=== PATIENT | female | born 1960 | race Caucasian/White ===

== ENCOUNTER 2016-05-01 06:55 | Day surgery (SDC) | payer BC ==
[~2016-05-01] VITALS: Ht 167.6 cm; Wt 99.8 kg
[2016-05-01] VITALS (12 sets, daily range): BP systolic 95–138; BP diastolic 55–76
[~2016-05-01 06:55] MED LIST: ASPI-983 PO; ATOR80TA76 PO; CLOP75TA28 PO; LISI10TA2 PO; METO-333 PO; NITR0.4T SL
[2016-05-01] MEDS ORDERED: HEParin (CATH LAB) 2,000 ML IV ONE (07:00)
[2016-05-01] MEDS ORDERED: NS IV 1000 ML 1,000 ML ONE (07:00)
[2016-05-01] MEDS ORDERED: LIDOCAINE 1% INJ 20 ML (XYLOCAINE) VIAL ONE ×2 (07:00→08:55)
--- OUTSIDE RECORDS SUMMARY | 2016-05-01 07:00 | XMS REPORT | Continuity of Care Document ---
Author Author [facility] Organization [facility] Address Unknown Phone Unavailable Care Team Providers Care Tunnel Man Name Role Phone CATY PEPE DO PCP Insurance Providers Payer Name Policy Number Subscriber Name Relationship [facility] [id number] Tamera Topete 16 Self / Same As Patient Advance Directives Directive Response Recorded Date/Time Advance Directives No 04/12/16 3:56am Resuscitation Status Full Code 04/12/16 3:56am Chief Complaint and Reason for Visit Chief Complaint ELEVATED TROPONIN;CHEST PAIN Reason for Visit Chest pain Non-ST elevation [place] (NSTEMI) Problems Active Problems Medical Problem Onset Date Status Chest pain Unknown Acute Non-ST elevation [place] (NSTEMI) Unknown Resolved Medications Current Home Medications Medication Dose Units Route Directions Days/Qty Instructions Start Date Clopidogrel Bisulfate 75 Mg 75 Mg Oral Daily 90 Days 04/13/16 Atorvastatin Calcium 80 Mg 80 Mg Oral Bedtime 90 Days 04/13/16 Nitroglycerin 0.4 Mg 0.4 Mg Sublingual Every 5 Minutes as needed for Chest Pain 30 Days 04/13/16 Metoprolol Tartrate 25 Mg 25 Mg Oral Twice A Day 90 Days 04/13/16 Lisinopril 10 Mg 10 Mg Oral Daily 90 Days 04/13/16 Aspirin 81 Mg 81 Mg Oral Daily 90 Days 04/13/16 Social History Social History Problem Response Recorded Date/Time Alcohol Use Rarely Uses 04/12/2016 4:01am Recreational Drug Use No 04/12/2016 4:01am Recent Foreign Travel No 04/12/2016 4:00am Recent Infectious Disease Exposure No 04/12/2016 4:00am Hospitalization with Isolation Denies 04/13/2016 3:32pm Smoking Status Current Everyday Smoker 04/12/2016 5:02am Type Used Cigarettes 04/13/2016 3:32pm Recent Hopitalizations No 04/12/2016 4:01am Hospitalization with Isolation Denies 04/13/2016 3:32pm Query Response Start Date Stop Date Smoking Status Current Everyday Smoker Hospital Discharge Instructions Patient Instructions Physician Instructions Follow Up/Plan Follow up with Dr Osorio in one to two weeks CARDIAC CATH DISCHARGE INSTRUCTIONS *Hold Metformin for 48 hours post heart cath. ACTIVITY * Go Home directly and rest. * Limit activity of the leg (or wrist if it was used) for 7 days including aerobics, swimming, jogging, bicycling, etc. * Restrict stair-climbing for 7 days if possible, if not, climb up with your non-cath leg, then bring together on the same step. * Avoid lifting, pushing, pulling or excessive movement of the affected extremity for 7 days. * Customary sexual activity may be resumed after 2 days-use caution not to use a position that strains or causes pain to the affected extremity. * No driving for 24 hours. * NO SMOKING. * Avoid straining for bowel movements for 7 days. * Gentle walking on level ground is allowed. * Returning to work will depend on the type of procedure and the results. Your doctor will discuss this with you. CALL YOUR DOCTOR FOR ANY OF THE FOLLOWING: *If bleeding from the puncture site occurs- Apply gentle pressure to site with clean cloth and call your doctor or EMS. * If a knot or lump forms under the skin, increases in size, or causes pain. * If bruising appears to be worsening or moving further down your leg instead of disappearing. * Temperature above 101 F. CARE OF YOUR GROIN INCISION; * Bruising or purple discoloration of the skin near the puncture site is common. * You may shower only, no bathtub bathing for 5 days. Be careful to avoid slipping as your leg may feel stiff. * If a closure device was used on your femoral artery, please see the attached guide regarding care of the device and your leg. * REMOVE the dressing from your groin the next day after your procedure in the shower. CARE OF YOUR WRIST INCISION; * Bruising or purple discoloration of the skin near the puncture site is common. * You may shower. * DO NOT submerge wrist. * Remove dressing in 24 hours. Plan of Care Discharge Date 04/13/16 12:40pm Disposition 01 HOME, SELF-CARE Instructions/Education Provided Heart Healthy Diet Forms Provided Follow-Up Fax Prescriptions See Medication Section Care Plan and Goals See Discharge Instructions Section Functional Status Query Response Date Recorded Patient Orientation Person Place Time Situation Normal For Age April 13, 2016 3:32pm Comprehension Ability Understands Concepts April 13, 2016 9:00am Allergies, Adverse Reactions, Alerts No known allergies. Immunizations No immunization records. Vital Signs Acute Vital Signs Vital Response Date/Time Temperature (Fahrenheit) 98.2 degrees F (97.6 - 99.5) 04/13/2016 12:30pm Temperature (Calculated Celsius) 36.16371 degrees C (36.4 - 37.5) 04/13/2016 12:00pm Temperature Source Tympanic 04/13/2016 12:30pm Pulse Rate (adult) 68 bpm (60 - 90) 04/13/2016 12:30pm Respiratory Rate 16 bpm (12 - 24) 04/13/2016 12:30pm O2 Sat by Pulse Oximetry 98 % (88 - 100) 04/13/2016 12:30pm Blood Pressure 103/51 mm Hg 04/13/2016 12:30pm Blood Pressure Mean 68 mm Hg 04/13/2016 12:00pm Pain Numeric Pain Scale 0-No Pain 04/13/2016 12:30pm Height (Feet) 5 feet 04/12/2016 4:00am Height (Inches) 7.00 inches 04/12/2016 4:00am Height (Calculated Centimeters) 170.776532 cm 04/12/2016 4:00am Weight (Pounds) 219 pounds 04/13/2016 6:00am Weight (Ounces) 0.0 oz 04/13/2016 6:00am Weight (Calculated Grams) 07639.730 gm 04/13/2016 6:00am Weight (Calculated Kilograms) 99.038501 kilograms 04/13/2016 6:00am Calculated BMI 34.1 04/12/2016 4:00am Capillary Refill Capillary Refill Less Than 3 Seconds 04/12/2016 3:00pm Results Laboratory Results Test Name Result Units Flags Reference Collection Date/Time Result Date/ Time Comments White Blood Count 6.8 10^3/uL 4.3-11.0 04/13/2016 3:43am 04/13/2016 4: 32am Red Blood Count 4.40 10^6/uL 4.35-5.85 04/13/2016 3:43am 04/13/2016 4: 32am Hemoglobin 12.9 G/DL 11.5-16.0 04/13/2016 3:43am 04/13/2016 4:32am Hematocrit 40 % 35-52 04/13/2016 3:43am 04/13/2016 4:32am Mean Corpuscular Volume 91 FL 80-99 04/13/2016 3:43am 04/13/2016 4: 32am Mean Corpuscular Hemoglobin 29 PG 25-34 04/13/2016 3:43am 04/13/2016 4: 32am Mean Corpuscular Hemoglobin Concent 32 G/DL 32-36 04/13/2016 3:43am 4:32am Red Cell Distribution Width 16.2 % H 10.0-14.5 04/13/2016 3:43am 2015 4:32am Platelet Count 236 10^3/uL 130-400 04/13/2016 3:43am 04/13/2016 4:32am Mean Platelet Volume 9.8 FL 7.4-10.4 04/13/2016 3:43am 04/13/2016 4: 32am Neutrophils (%) (Auto) 71 % 42-75 04/12/2016 1:54am 04/12/2016 2:03am Lymphocytes (%) (Auto) 19 % 12-44 04/12/2016 1:54am 04/12/2016 2:03am Monocytes (%) (Auto) 7 % 0-12 04/12/2016 1:54am 04/12/2016 2:03am Eosinophils (%) (Auto) 3 % 0-10 04/12/2016 1:54am 04/12/2016 2:03am Basophils (%) (Auto) 0 % 0-10 04/12/2016 1:54am 04/12/2016 2:03am Neutrophils # (Auto) 7.9 X 10^3 H 1.8-7.8 04/12/2016 1:54am 04/12/2016 2: 03am Lymphocytes # (Auto) 2.1 X 10^3 1.0-4.0 04/12/2016 1:54am 04/12/2016 2: 03am Monocytes # (Auto) 0.8 X 10^3 0.0-1.0 04/12/2016 1:54am 04/12/2016 2: 03am Eosinophils # (Auto) 0.3 10^3/uL 0.0-0.3 04/12/2016 1:54am 04/12/2016 2 :03am Basophils # (Auto) 0.0 10^3/uL 0.0-0.1 04/12/2016 1:54am 04/12/2016 2: 03am Prothrombin Time 12.2 SEC 12.2-14.7 04/12/2016 1:54am 04/12/2016 2: 13am INR Comment 0.9 0.8-1.4 04/12/2016 1:54am 04/12/2016 2:13am INTERPRETIVE DATA SUGGESTED THERAPEUTIC RANGE FOR INR'S: VENOUS THROMBOSIS, PULMONARY EMBOLISM, OR PREVENTION OF SYSTEMIC EMBOLISM (EG. IN ATRIAL FIBRILLATION): 2.0 - 3.0 MECHANICAL PROSTHETIC HEART VALVES: 2.5 - 3.5* *NOTE: INR'S UP TO 4.5 MAY BE NECESSARY IN SELECTED GROUPS OF HIGH RISK PATIENTS. [employer] [employer] OF CHEST PHYSICIANS CONSENSUS CONFERENCE ON ANTITHROMBOTIC THERAPY (2000). Activated Partial Thromboplast Time 31 SEC 24-35 04/12/2016 1:54am 2:14am Sodium Level 141 MMOL/L 135-145 04/13/2016 3:45am 04/13/2016 4:54am Potassium Level 3.8 MMOL/L 3.6-5.0 04/13/2016 3:45am 04/13/2016 4:54am Chloride Level 108 MMOL/L H 98-107 04/13/2016 3:45am 04/13/2016 4:54am Carbon Dioxide Level 25 MMOL/L 21-32 04/13/2016 3:45am 04/13/2016 4: 54am Anion Gap 8 MMOL/L 5-14 04/13/2016 3:45am 04/13/2016 4:54am Blood Urea Nitrogen 11 MG/DL 7-18 04/13/2016 3:45am 04/13/2016 4:54am Creatinine 0.63 MG/DL 0.60-1.30 04/13/2016 3:45am 04/13/2016 4:54am BUN/Creatinine Ratio 17 04/13/2016 3:45am 04/13/2016 4:54am Estimat Glomerular Filtration Rate > 60 04/13/2016 3:45am 2015 4:54am GFR INTERPRETIVE DATA UNITS FOR ESTIMATED GFR (eGFR): mL/min/1.73 M2 REFERENCE RANGE FOR ESTIMATED GFR (eGFR) eGFR NORMAL eGFR >60 MODERATELY DECREASED eGFR 30-59 SEVERLY DECREASED eGFR 15-29 KIDNEY FAILURE <15 (OR DIALYSIS) Glucose Level 90 MG/DL 70-105 04/13/2016 3:45am 04/13/2016 4:54am Calcium Level 8.6 MG/DL 8.5-10.1 04/13/2016 3:45am 04/13/2016 4:54am Magnesium Level 2.0 MG/DL 1.8-2.4 04/12/2016 1:54am 04/12/2016 2:31am Total Bilirubin 0.2 MG/DL 0.1-1.0 04/12/2016 1:54am 04/12/2016 2:31am Alkaline Phosphatase 84 U/L 40-136 04/12/2016 1:54am 04/12/2016 2:31am Aspartate Amino Transf (AST/SGOT) 17 U/L 5-34 04/12/2016 1:54am 2015 2:31am Alanine Aminotransferase (ALT/SGPT) 14 U/L 0-55 04/12/2016 1:54am 04/12 2:31am Total Creatine Kinase 72 U/L 29-168 04/12/2016 1:54am 04/12/2016 2: 31am Creatine Kinase MB 7.3 NG/ML CH <6.6 04/12/2016 1:54am 04/12/2016 2:37am RESULTS CALLED TO MARKOS AT 0237. RESULTS READ BACK: YES [g LABRB]. Troponin I 1.37 NG/ML CH <0.30 04/13/2016 3:45am 04/13/2016 5:06am RESULT CALLED TO HUSSEIN AT 0505. RESULTS READ BACK: YES. Troponin I 0.68 NG/ML CH <0.30 04/12/2016 7:45am 04/12/2016 8:27am RESULT CALLED TO STEFFI AT 0827. RESULTS READ BACK: YES. B-Type Natriuretic Peptide 153.5 PG/ML H <100.0 04/12/2016 1:54am 2015 2:36am Total Protein 6.0 G/DL L 6.4-8.2 04/12/2016 1:54am 04/12/2016 2:31am Albumin 4.0 G/DL 3.2-4.5 04/12/2016 1:54am 04/12/2016 2:31am Triglycerides Level 154 MG/DL H <150 04/13/2016 3:45am 04/13/2016 4:54am Cholesterol Level 179 MG/DL < 200 04/13/2016 3:45am 04/13/2016 4:54am HDL Cholesterol 36 MG/DL L 40-60 04/13/2016 3:45am 04/13/2016 4:54am LDL Cholesterol Direct 129 MG/DL 1-129 04/13/2016 3:45am 04/13/2016 4: 54am VLDL Cholesterol 31 MG/DL 5-40 04/13/2016 3:45am 04/13/2016 4:54am Amylase Level 49 U/L 25-125 04/12/2016 1:54am 04/12/2016 2:31am Lipase 10 U/L 8-78 04/12/2016 1:54am 04/12/2016 2:31am Procedures Procedure Status Date Provider(s) Tracing only of electrocardiogram Active 04/12/16 SHARON LOUIS DO Tracing only of electrocardiogram Active 04/12/16 Darwin OSORIO MD Color Doppler echocardiography Active 04/12/16 Darwin OSORIO MD Tracing only of electrocardiogram Active 04/13/16 Darwin OSORIO MD Tracing only of electrocardiogram Active 04/13/16 Darwin OSORIO MD Encounters Encounter Location Arrival/Admit Date Discharge/Depart Date Attending Provider Discharged Inpatient (obs) [facility] 04/12/16 2:45am 12:40pm Darwin OSORIO MD Recent Diagnosis Chest pain Non-ST elevation VT (NSTEMI)
--- OUTSIDE RECORDS SUMMARY | 2016-05-01 07:01 | XMS REPORT | Continuity of Care Document ---
Author Author [facility] Organization [facility] Address Unknown Phone Unavailable Care Team Providers Care Pack Operator Name Role Phone CATY PEPE DO PCP Insurance Providers Payer Name Policy Number Subscriber Name Relationship [facility] [[email or web address] [id number] Tamera Topete 16 Self / Same As Patient Advance Directives Directive Response Recorded Date/Time Advance Directives No 04/12/16 3:56am Resuscitation Status Full Code 04/12/16 3:56am Chief Complaint and Reason for Visit Chief Complaint ELEVATED TROPONIN;CHEST PAIN Reason for Visit Chest pain Non-ST elevation [place] (NSTEMI) Problems Active Problems Medical Problem Onset Date Status Chest pain Unknown Acute Non-ST elevation AK (NSTEMI) Unknown Resolved Medications Current Home Medications [...] - 99.5) 04/13/2016 12:30pm Temperature (Calculated Celsius) 36.74634 degrees C (36.4 - 37.5) 04/13/2016 12:00pm [...] 7.00 inches 04/12/2016 4:00am Height (Calculated Centimeters) 170.517589 cm 04/12/2016 4:00am Weight (Pounds) 219 pounds 04/13/2016 6:00am Weight (Ounces) 0.0 oz 04/13/2016 6:00am Weight (Calculated Grams) 86494.730 gm 04/13/2016 6:00am Weight (Calculated Kilograms) 99.365344 kilograms 04/13/2016 6:00am Calculated BMI 34.1 04/12/2016 [...] SELECTED GROUPS OF HIGH RISK PATIENTS. [employer] [place] [employer] OF CHEST PHYSICIANS CONSENSUS CONFERENCE ON [...] MD Color Doppler echocardiography Active 04/12/16 Darwin OSOROI MD Tracing only of electrocardiogram Active 04/13/16 Darwin OSORIO MD Tracing only of electrocardiogram Active 04/13/16 Darwin OSORIO MD Encounters Encounter Location Arrival/Admit Date Discharge/Depart Date Attending Provider Discharged Inpatient (obs) [facility] 04/12/16 2:45am 12:40pm Darwin OSORIO MD Recent Diagnosis Chest pain Non-ST elevation [place] (NSTEMI)
[2016-05-01] MEDS ORDERED: NS IV 1000 ML 1,000 ML IV SCH ×2 (07:08→10:27)
[2016-05-01] MEDS ORDERED: ESCI10TA55 PO ×2 (07:42)
[2016-05-01] MEDS ORDERED: ATOR80TA76 PO ×2 (07:42)
[2016-05-01] MEDS ORDERED: CLOP75TA69 PO ×2 (07:42)
[2016-05-01] MEDS ORDERED: LISI10TA2 PO ×2 (07:42)
[2016-05-01] MEDS ORDERED: METO-333 PO ×2 (07:42)
[2016-05-01] MEDS ORDERED: ASPI-983 PO ×2 (07:42)
[2016-05-01] MEDS ORDERED: OMEP-254 PO ×2 (07:42)
[2016-05-01 07:43] LABS: MEAN PLATELET VOLUME 9.8 FL (7.4-10.4); RED BLOOD COUNT 4.82 10^6/uL (4.35-5.85); RED CELL DISTRIBUTION WIDTH 16.1 % (10.0-14.5); WHITE BLOOD COUNT 7.9 10^3/uL (4.3-11.0)
[2016-05-01 07:47] LABS: INR 0.9 (0.8-1.4); PROTHROMBIN TIME PATIENT 12.1 SEC (12.2-14.7)
[2016-05-01 07:57] LABS: ALANINE AMINOTRANSFERASE 14 U/L (0-55); ALBUMIN 4.2 G/DL (3.2-4.5); ANION GAP 10 MMOL/L (5-14); ASPARTATE AMINO TRANSFERASE 12 U/L (5-34); BILIRUBIN,TOTAL 0.4 MG/DL (0.1-1.0); BLOOD UREA NITROGEN 16 MG/DL (7-18); BUN/CREATININE RATIO 23; CARBON DIOXIDE 24 MMOL/L (21-32); CHLORIDE 108 MMOL/L (98-107); CREATININE SERUM 0.71 MG/DL (0.60-1.30); GFR ESTIMATED > 60; GLUCOSE 93 MG/DL (70-105); POTASSIUM 4.2 MMOL/L (3.6-5.0); SODIUM 142 MMOL/L (135-145); TOTAL PROTEIN 6.4 G/DL (6.4-8.2)
[2016-05-01] MEDS ORDERED: fentaNYL INJECTION 100 MCG/2 ML AMP ONE ×2 (08:20→09:14)
[2016-05-01] MEDS ORDERED: MIDAZOLAM 5 MG/5 ML (VERSED) VIAL ONE ×2 (08:20→09:14)
[2016-05-01] MEDS ORDERED: HEParin 1000 UNIT/ML (10ML VIAL) FOR BOLUS ONE (08:20)
[2016-05-01] MEDS ORDERED: diphenhydrAMINE 50 MG/ML INJ (BENADRYL) ONE (08:20)
--- NOTE | 2016-05-01 08:21 | Diagnostic Imaging Report ---
Portable upright radiograph of the chest. INDICATION: Hypertension. CHF. FINDINGS: There is moderate cardiomegaly with no overt failure. There is minimal right basilar density persistent from 04/12/2016 exam may relate to focal infiltrate. A pulmonary nodule is not ruled out. Left lung is clear. The heart size is normal. No effusion or pneumothorax. The mediastinum and helen appear unremarkable. IMPRESSION: 1. Cardiomegaly without overt failure. 2. Focal density in the right lung base may relate to focal atelectasis. CT evaluation to rule out a nodule is recommended. The findings were discussed with Dr. Osorio by Dr. Westfall at time of dictation. Dictated by: Dictated on workstation # [id number]
[2016-05-01] MEDS ORDERED: PROTAMINE 50 MG/5 ML VIAL ONE (10:11)
--- NOTE | 2016-05-01 10:25 | Cardiac Procedure Note-CS/ASA ---
Pre-Procedure Note Pre-Op Procedure Note H&P Reviewed The H&P was reviewed, patient examined and no changes noted. Date H&P Reviewed: May 01, 2016 Time H&P Reviewed: 08:00 Conscious Sedation Pre-Proced Time Reviewed: 08:00 ASA Class: 3 Airway Mallampati Classification: (wichita appropriate class) I. II. III, IV Lungs Heart ASA score ASA 1: a normal healthy patient ASA 2: a patient with a mild systemic disease (mid diabetes, controlled hypertension, obesity ASA 3: a patient with a severe systemic disease that limits activity (angina , COPD, prior Myocardial infarction) ASA 4: a patient with an incapacitating disease that is a constant threat to life (CHF, renal failure) ASA 5: a moribund patient not expected to survive 24 hrs. (ruptured aneurysm) ASA 6: a declared brain patient whose organs are being harvested. For emergent operations, add the letter E after the classification Grade 1 Sedation Plan: Analgesia, Amnesia, Plan communicated to team members, Discussed options with patient/fam, Discussed risks with patient/fam Note The patient is an appropriate candidate to undergo the planned procedure, sedation, and anesthesia. The patient immediately re-assessed prior to indication. Darwin HAMILTON MD May 01, 2016 10:25 am
--- NOTE | 2016-05-01 10:27 | Progress Note-Post Operative ---
Post-Operative Progess Note Pre-Operative Diagnosis DEVELOPMENT GEOLOGIST of the RCA Post-Operative Diagnosis could not cross the lesion Post-Op Procedure Note Date of Procedure: May 01, 2016 Name of Procedure: RCA angiography, PCI attempt Procedure Note/Findings DEVELOPMENT GEOLOGIST of RCA; we could not cross the occlusion with a wire. Anesthesia Type local anesthesia, conscious sedation Estimated blood loss (mL): 10 mL Packing: none Specimen(s) collected none Darwin HAMILTON MD May 01, 2016 10:27 am
[2016-05-01] MEDS ORDERED: PATIENT MAY USE OWN MEDS, ALL PO SCH (10:30)
--- NOTE | 2016-05-01 10:30 | Discharge Inst-Post CATH ---
Discharge Inst-CATH Post Cardiac Cath D/C Inst Follow Up/Plan follow up with Dr Osorio in three - four weeks. CARDIAC CATH DISCHARGE INSTRUCTIONS *Hold Metformin for 48 hours post heart cath. ACTIVITY * Go Home directly and rest. * Limit activity of the leg (or wrist if it was used) for 7 days including aerobics, swimming, jogging, bicycling, etc. * Restrict stair-climbing for 7 days if possible, if not, climb up with your non -cath leg, then bring together on the same step. * Avoid lifting, pushing, pulling or excessive movement of the affected extremity for 7 days. * Customary sexual activity may be resumed after 2 days-use caution not to use a position that strains or causes pain to the affected extremity. * No driving for 24 hours. * NO SMOKING. * Avoid straining for bowel movements for 7 days. * Gentle walking on level ground is allowed. * Returning to work will depend on the type of procedure and the results. Your doctor will discuss this with you. CALL YOUR DOCTOR FOR ANY OF THE FOLLOWING: *If bleeding from the puncture site occurs- Apply gentle pressure to site with clean cloth and call your doctor or EMS. * If a knot or lump forms under the skin, increases in size, or causes pain. * If bruising appears to be worsening or moving further down your leg instead of disappearing. * Temperature above 101 F. CARE OF YOUR GROIN INCISION; * Bruising or purple discoloration of the skin near the puncture site is common. * You may shower only, no bathtub bathing for 5 days. Be careful to avoid slipping as your leg may feel stiff. * If a closure device was used on your femoral artery, please see the attached guide regarding care of the device and your leg. * REMOVE the dressing from your groin the next day after your procedure in the shower. CARE OF YOUR WRIST INCISION; * Bruising or purple discoloration of the skin near the puncture site is common. * You may shower. * DO NOT submerge wrist. * Remove dressing in 24 hours. Darwin OSORIO MD May 01, 2016 10:30 am
--- NOTE | 2016-05-01 10:33 | Cardiology Discharge Summary ---
Diagnosis/Chief Complaint Date of Admission 05/01/2016 Date of Discharge 05/01/2016 Admission Diagnosis chronic total occlusion of the RCA Final/Discharge Diagnosis chronic total occlusion of the RCA, could not cross the occlusion Chief Complaint/HPI Chief Complaint/HPI coronary artery disease Discharge Summary Procedures unsuccessful PCI attempt Discharge Physical Examination stable Hospital Course stable Pending Labs Laboratory Tests 05/01/16 07:33: Activated Partial Thromboplast Time 33, Alanine Aminotransferase (ALT/SGPT) 14, Albumin 4.2, Alkaline Phosphatase 89, Anion Gap 10, Aspartate Amino Transf (AST/ SGOT) 12, BUN/Creatinine Ratio 23, Blood Urea Nitrogen 16, Calcium Level 9.0, Carbon Dioxide Level 24, Chloride Level 108, Creatinine 0.71, Estimat Glomerular Filtration Rate > 60, Glucose Level 93, Hematocrit 44, Hemoglobin 14.2, INR Comment 0.9, Mean Corpuscular Hemoglobin 30, Mean Corpuscular Hemoglobin Concent 33, Mean Corpuscular Volume 90, Mean Platelet Volume 9.8, Platelet Count 256, Potassium Level 4.2, Prothrombin Time 12.1, Red Blood Count 4.82, Red Cell Distribution Width 16.1, Sodium Level 142, Total Bilirubin 0.4, Total Protein 6.4, White Blood Count 7.9 Discussion & Recommendations Follow up appt.: Dr. Osorio in 3-4 weeks Dicharge Diet: Cardiac Diet Activity as Tolerated: Yes Home Medications Reviewed patient Home Medication Reconciliation Form Discharge Home Medications: Reviewed and agree with Discharge Medication list on patient's Discharge Instruction sheet Condition at discharge stable Instructions to patient/family follow up with Dr Osorio in three - four weeks. Diagnosis/Problems Diagnosis/Problems (1) Coronary artery disease Status: Chronic (2) Smoking Status: Darwin Hernandez MD May 01, 2016 10:33 am
--- NOTE | 2016-05-01 11:46 | CARDIAC CATHETERIZATION ---
PROCEDURE PHYSICIAN: CRYSTAL HAMILTON RCA ANGIOGRAPHY REPORT DATE OF PROCEDURE: 05/01/2016 INDICATION: Recent non-ST elevation NV, status post drug eluting stent to the LAD, chronic total occlusion of the RCA. PREOPERATIVE DIAGNOSIS: Chronic total occlusion of the RCA. POSTOPERATIVE DIAGNOSIS: Chronic total occlusion of the RCA, unsuccessful in crossing the lesion. HISTORY: Ms. Topete is a 56-year-old lady with history of active smoking. She presented with non-ST elevation NV previously and had PCI to severe stenosis in the mid LAD with a drug eluting stent. 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 She was planned as a staged procedure. PROCEDURE PERFORMED: 1. Right femoral angiography. 2. RCA angiography. 3. Unsuccessful PCI attempt. ESTIMATED BLOOD LOSS: 10 mL CONTRAST: 153 mL of Omnipaque FLUOROSCOPY DOSE: 1610 mGy FLUOROSCOPY TIME: 25.9 minutes. ANTICOAGULATION: Heparin. ANESTHESIA: Local anesthesia, conscious sedation. PROCEDURE DETAILS: The patient was brought to the [facility] after informed consent was taken. All the risks and complications were explained in detail. She was draped and prepped in the usual sterile fashion. Access was gained in the right femoral artery with a 6-Kenyan sheath. We started with a JR4 guide catheter; however, there was significant dampening therefore, we switched to a JR4 guide catheter with side holes. We used a Readz bro 6 300 cm guidewire. Heparin was used for anticoagulation. RCA angiography shows a chronic total occlusion of the mid RCA with bridging collaterals with faint filling of the distal vessel. We therefore went in with the guidewire and a 1.2 mm [id number] balloon. This balloon was Mini Trek 1.2 x 6 x 145 cm. However, we were not able to cross since the guide catheter would be pushed out of the ostium of the RCA. We therefore took a 6-[place] guideliner for support. However, still we were not able to cross the lesion. There was also a mild dissection noted. At this point in time we decided to stop the procedure. The wire, guideliner and the balloon was taken out. Post angiography did not show any perforation or worsening of the dissection. There was only a small dissection noted. IMPRESSION/CONCLUSION: 1. Recent history of non-ST elevation NV, status post PCI to the mid LAD with drug eluting stent. Stage procedure to chronic total occlusion of the RCA was planned. 2. Unsuccessful at crossing the total occlusion in the RCA. Very small non-flow limiting dissection was noted; procedure stopped. 3. I will follow-up in the office in 3 to 4 weeks. Further management will be based on clinical situation. Job ID: [id number] Dictated Date: 05/01/2016 11:12:09 Cork Tile Floor Layer Date: 05/01/2016 11:29:41 / emmanuel KELLY
[2016-05-02] MEDS ORDERED: ASPIRIN E.C. 81 MG (ECOTRIN) TAB PO SCH (09:00)
[2016-05-02] MEDS ORDERED: CLOPIDOGREL 75 MG (PLAVIX) TABLET PO SCH (09:00)
== END 2016-05-01 15:40 | disposition home or self-care (01) ==
LOC: CATH 06:55 → ICU 10:43 → CATH 15:40
PROVIDERS: ATTEND Internal Medicine Interventional Cardiology
DX: I25.10 Atherosclerotic heart disease of native coronary artery without angina pectoris (principal); I21.4 Non-ST elevation (NSTEMI) myocardial infarction; Z95.5 Presence of coronary angioplasty implant and graft; I25.2 Old myocardial infarction; I25.82 Chronic total occlusion of coronary artery; Z79.899 Other long term (current) drug therapy; Z87.891 Personal history of nicotine dependence
CPT/HCPCS: 36415; 71010; 80053; 85027; 85610; 85730; 87081; 93005; 93454

== ENCOUNTER → 2016-05-07 | Outpatient (CLI) | payer BC ==
[~2016-05-07] MED LIST changes: +CLOP75TA69 PO; +ESCI10TA55 PO; +OMEP-254 PO
--- OUTSIDE RECORDS SUMMARY | 2016-05-07 10:30 | XMS REPORT | Continuity of Care Document ---
Author Author [facility] Organization [facility] Address Unknown Phone Unavailable Care Team Providers Care Geological Technical Officer Name Role Phone CATY PEPE DO PCP Insurance Providers Payer Name Policy Number Subscriber Name Relationship [facility] [id number] Tamera Topete 16 Self / Same As Patient Advance Directives Directive Response Recorded Date/Time Advance Directives No 04/12/16 3:56am Resuscitation Status Full Code 04/12/16 3:56am Chief Complaint and Reason for Visit Chief Complaint ELEVATED TROPONIN;CHEST PAIN Reason for Visit Chest pain Non-ST elevation [place] (NSTEMI) Problems Active Problems Medical Problem Onset Date Status Chest pain Unknown Acute Non-ST elevation RI (NSTEMI) Unknown Resolved Medications Current Home Medications [...] - 99.5) 04/13/2016 12:30pm Temperature (Calculated Celsius) 36.13455 degrees C (36.4 - 37.5) 04/13/2016 12:00pm [...] 7.00 inches 04/12/2016 4:00am Height (Calculated Centimeters) 170.312038 cm 04/12/2016 4:00am Weight (Pounds) 219 pounds 04/13/2016 6:00am Weight (Ounces) 0.0 oz 04/13/2016 6:00am Weight (Calculated Grams) 17393.730 gm 04/13/2016 6:00am Weight (Calculated Kilograms) 99.916901 kilograms 04/13/2016 6:00am Calculated BMI 34.1 04/12/2016 [...] SELECTED GROUPS OF HIGH RISK PATIENTS. [employer]IX[employer] [place] [employer] CHEST PHYSICI[employer] CONSENSUS CONFERENCE ON [...] Date Attending Provider Discharged Inpatient (obs) [facility] 04/12/16 2:45am 12:40pm Darwin OSORIO MD Recent Diagnosis Chest pain Non-ST elevation [place] (NSTEMI)
--- NOTE | 2016-05-07 17:07 | Diagnostic Imaging Report ---
PROCEDURE: CT chest without contrast. TECHNIQUE: Multiple contiguous axial images were obtained through the chest without the use of intravenous contrast. INDICATION: Abnormal density seen in the right lung base on chest x-ray from 05/01/2016. FINDINGS: The lungs demonstrate nonspecific nodular densities measuring 7 mm in the right middle lobe and 1.3 cm in the superior segment of the right lower lobe with appearance in favor of scarring. There is no suspicious mass or significant consolidation. There is mild upper lobe predominant emphysema changes. There is suggestion of areas of air-trapping. There is no pleural or pericardial effusion. Coronary artery calcifications are seen. There is no mediastinal mass or significantly enlarged lymph nodes. No axillary lymphadenopathy seen. Sections in the upper abdomen appear grossly unremarkable. The osseous structures demonstrate prominent degenerative changes of the thoracic spine. There is mild right convexity scoliosis. IMPRESSION: 1. Nonspecific nodular densities in the right middle lobe and the superior segment of the right lower lobe with morphology in favor of scarring. Three-month followup unenhanced low-dose CT chest protocol to observe these lesions is recommended. 2. Emphysema and suggestion of areas of air-trapping. Dictated by: Dictated on workstation # [id number]
== END ==
LOC: RAD 10:24
PROVIDERS: ATTEND Internal Medicine Interventional Cardiology
DX: I51.7 Cardiomegaly (principal); J98.11 Atelectasis
CPT/HCPCS: 71250

== ENCOUNTER → 2016-09-01 | Outpatient (CLI) | payer BC ==
[~2016-09-01] MED LIST changes: +RT-ALBUTEROL SULF 2.5 MG/3 ML PRE-MIX VIAL IH ONE
--- NOTE | 2016-09-01 13:41 | Diagnostic Imaging Report ---
PROCEDURE: CT chest without contrast. TECHNIQUE: Multiple contiguous axial images were obtained through the chest without the use of intravenous contrast. INDICATION: Followup pulmonary nodule. Comparison with 05/07/2016. FINDINGS: The lungs are well aerated. The small pleural-based density in the right upper lobe anterolaterally is again identified. This measures approximately 7 mm and is unchanged. No new lesions have developed. No pleural effusions or pericardial effusions. Aorta is atherosclerotic. Coronary arteries are densely calcified. No mediastinal or hilar adenopathy of pathologic size. IMPRESSION: Single pleural-based nodule noncalcified laterally in the right upper lobe. This measures 7 mm. This is stable since April. A 12-month followup to confirm stability. Dictated by: Dictated on workstation # [id number]
== END ==
LOC: RAD 11:24
PROVIDERS: ATTEND Nurse Practitioner Family
DX: R91.1 Solitary pulmonary nodule (principal); J30.9 Allergic rhinitis, unspecified; R06.00 Dyspnea, unspecified
CPT/HCPCS: 71250; 94060; 94640; 94726; 94729